=== PATIENT | male | born 1940 | race Caucasian/White ===

== ENCOUNTER 2019-03-07 09:25 | Emergency (ER) | payer MEDICARE, BC ==
[~2019-03-07] VITALS: Ht 170.2 cm; Wt 85.0 kg
[2019-03-07] MEDS ORDERED: oxymetazoline 15 ML nasal spray NS ONE (10:00)
[2019-03-07] MEDS ORDERED: tranexamic acid 100mg/ml inj. TP ONE (10:00)
--- NOTE | 2019-03-07 10:25 | NUR ---
ent box and supplies at bedside. Valery MENDOZA speaking with ENT
[2019-03-07 11:36] VITALS: BP 154/81
== END 2019-03-07 11:39 | disposition home or self-care (01) ==
LOC: ER 09:26
DX: R04.0 Epistaxis (principal); I10 Essential (primary) hypertension
CPT/HCPCS: 30901; 36415; 85610; 99283; 99285

== ENCOUNTER 2020-01-24 13:16 | Emergency (ER) | payer MEDICARE, BC ==
[~2020-01-24] VITALS: Ht 170.2 cm; Wt 80.0 kg
[2020-01-24 13:22] VITALS: BP 148/94
[2020-01-24] MEDS ORDERED: LIDOcaine 1% W/epiNEPHrine 1:200,000 10ml vial IJ ONE (14:30)
[2020-01-24] MEDS ORDERED: tranexamic acid 100mg/ml inj. TP ONE (14:30)
[2020-01-24] MEDS ORDERED: LIDOcaine 2% 10ml TOPICAL JELLY (Urojet) MM ONE (15:20)
[2020-01-24] MEDS ORDERED: AMOX1TAB87 PO (15:41)
== END 2020-01-24 16:01 | disposition home or self-care (01) ==
LOC: ER 13:16
DX: R04.0 Epistaxis (principal); D68.59 Other primary thrombophilia; I10 Essential (primary) hypertension; Z95.1 Presence of aortocoronary bypass graft; Z79.2 Long term (current) use of antibiotics
CPT/HCPCS: 30901; 99284

== ENCOUNTER 2020-01-27 06:42 | Emergency (ER) | payer MEDICARE, BC ==
[~2020-01-27] VITALS: Ht 170.2 cm; Wt 76.8 kg
[~2020-01-27 06:42] MED LIST: AMOX1TAB87 PO
[2020-01-27 06:51] VITALS: BP 126/69
== END 2020-01-27 08:05 | disposition home or self-care (01) ==
LOC: ER 06:43
DX: R04.0 Epistaxis (principal); I10 Essential (primary) hypertension; M19.90 Unspecified osteoarthritis, unspecified site; Z98.890 Other specified postprocedural states; Z79.2 Long term (current) use of antibiotics
CPT/HCPCS: 99281